=== PATIENT | female | born 2000 | race Caucasian/White ===

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

== ENCOUNTER 2018-04-03 14:54 | Emergency (ER) | payer OTHER ==
[~2018-04-03] VITALS: Ht 170.2 cm; Wt 70.4 kg
[~2018-04-03 14:54] MED LIST changes: +FROVA2.5 MG PO; +MELATONIN10 M1 PO; +NEURONTIN300 MG PO; +NEXPLANON68 MG SC; +NORTREL1 EAC3 PO; +PROAIR HFA8.5 GM IH; +QVAR REDIHALE10.6 GM IH; +REGLAN10 MG PO; +WELLBUTRIN XL300 MG PO
[2018-04-03 16:02] VITALS: BP 125/90
== END 2018-04-03 16:02 | disposition home or self-care (01) ==
LOC: EME 14:54
DX: H92.01 Otalgia, right ear (principal)
CPT/HCPCS: 99281; 99283